=== PATIENT | male | born 1970 | race Caucasian/White ===

== ENCOUNTER 2018-03-15 17:34 | Emergency (ER) | payer OTHER ==
[2018-03-15] MEDS ORDERED: KETOROLAC 30 MG/ML INJ ONE (18:34)
[2018-03-15] MEDS ORDERED: NA CHLORIDE 0.9% 1,000 ML ONE (18:34)
[2018-03-15] MEDS ORDERED: ACETAMINOPHEN 500 MG TAB ONE (18:34)
[2018-03-15 18:57] LABS: Absolute Lymphocytes (CBC) 2.4 K/uL (0.7-4.9); Absolute Monocytes 1.1 K/uL (0.1-1.3); Absolute Neutrophil 7.9 K/uL (1.8-8.0); Basophils % 0.6 % (0-1.3); Eosinophils % 2.2 % (0-4.4); Hematocrit 51.8 % (39.6-49.0); Lymphocytes % 20.2 % (15.3-44.8); MCH 29.3 pg (27.0-35.0); MCV 86.8 fL (80-100); MPV 9.7 fL (7.6-11.3); Monocytes % 9.6 % (3.3-12.3); RBC Red Blood Cell Count 5.97 M/uL (4.33-5.43)
[2018-03-15 19:05] LABS: Albumin 3.9 g/dL (3.4-5.0); Bilirubin Direct 0.2 mg/dL (0-0.2); Bilirubin Total 0.7 mg/dL (0.2-1.0); Protein, Total 7.4 g/dL (6.4-8.2)
[2018-03-15 19:31] LABS: Urine Blood NEGATIVE (NEG); Urine Glucose 2+ (NEG); Urine Protein NEGATIVE (NEG)
[2018-03-15 20:03] LABS: Urine Bacteria <20 /HPF (NONE SEEN); Urine Culture Reflex Order NOT NEEDED; Urine RBC <5 /HPF (NONE SEEN)
--- NOTE | 2018-03-15 20:46 | ER ---
Nurse's Notes [facility] Name: Al Richardson Age: 47 yrs Sex: Male : 1970 Arrival Date: 03/15/2018 Time: 17:38 Bed 20 Private MD: Chintan Storey Diagnosis: Hyperglycemia;Acute Pharyngitis Presentation: 03/15 17:55 Presenting complaint: Patient states: I havent been monitoring my blood sugars and just sg eating and drinking whatever i want to. Transition of care: patient was not received from another setting of care. Onset of symptoms was March 15, 2018. Risk Assessment: Do you want to hurt yourself or someone else? Patient reports no desire to harm self or others. Initial Sepsis Screen: Does the patient meet any 2 criteria? No. Patient's initial sepsis screen is negative. Does the patient have a suspected source of infection? No. Patient's initial sepsis screen is negative. Care prior to arrival: None. 17:55 Method Of Arrival: Ambulatory sg 17:55 Acuity: NANCY 3 sg Historical: - Allergies: 17:56 Pork/Porcine Containing Products; sg - PMHx: 17:56 Cellulitis; Diabetes - NIDDM; lymphedema; PERIPHERAL NEUROPATHY; sg - PSHx: 17:56 Tonsillectomy; sg - Immunization history:: Adult Immunizations not up to date. - Social history:: Smoking status: Patient/guardian denies using tobacco. - Ebola Screening: : Patient negative for fever greater than or equal to 101.5 degrees Fahrenheit, and additional compatible Ebola Virus Disease symptoms Patient denies exposure to infectious person Patient denies travel to an Ebola-affected area in the 21 days before illness onset No symptoms or risks identified at this time. - Family history:: not pertinent. - Hospitalizations: : No recent hospitalization is reported. Screenin:44 Abuse screen: Denies threats or abuse. Denies injuries from another. Nutritional hb screening: No deficits noted. Tuberculosis screening: No symptoms or risk factors identified. Fall Risk None identified. Assessment: 18:30 General: Appears in no apparent distress. Behavior is calm, cooperative. Pain: Pain hb currently is 4 out of 10 on a pain scale. Neuro: Level of Consciousness is awake, alert, obeys commands, Oriented to person, place, time, situation. Cardiovascular: Capillary refill < 3 seconds Patient's skin is warm and dry. Respiratory: Airway is patent Trachea midline Respiratory effort is even, unlabored, Respiratory pattern is regular, symmetrical, Breath sounds are clear bilaterally. GI: No signs and/or symptoms were reported involving the gastrointestinal system. : No signs and/or symptoms were reported regarding the genitourinary system. EENT: Reports pain since throat, head. Derm: Skin is intact, is healthy with good turgor, Skin is pink, warm \T\ dry. Musculoskeletal: No signs and/or symptoms reported regarding the musculoskeletal system. 19:00 Reassessment: RECD REPORT FROM [place] EST[place]AN. 47YO WM P/W HYPERGLYCEMIA AND MED bp NON-COMPLIANCE. VS STABLE, URINE PENDING. 20:55 Reassessment: PT D/C HOME AMBULATORY, DX WITH HYPERGLYCEMIA. bp Vital Signs: 18:30 BP 150 / 79; Pulse 90; Resp 18; Temp 98.3; Pulse Ox 98% on R/A; Pain 4/10; hb 19:00 BP 141 / 78; Pulse 81; Resp 14; Pulse Ox 97% ; bp 20:21 BP 141 / 82; Pulse 73; Resp 16; Pulse Ox 97% ; bp ED Course: 17:38 Patient arrived in ED. sb2 17:38 Chintan Storey DO is Private Physician. sb2 17:43 India Barriga, CARLITO is Primary Nurse. hb 17:55 Arm band placed on. sg 17:56 Triage completed. sg 18:09 Prem Dupont MD is Attending Physician. wa 18:37 Initial lab(s) drawn, by me, sent to lab. Flu and/or RSV swab sent to lab. Inserted dh3 saline lock: 20 gauge in left forearm, using aseptic technique. Blood collected. 18:46 Patient has correct armband on for positive identification. Call light in reach. Pt hb sitting in chair. 20:32 Primary Nurse role handed off by India Barriga, CARLITO bp 20:32 Edward Martin, CARLITO is Primary Nurse. bp 20:56 No provider procedures requiring assistance completed. IV discontinued, intact, bp bleeding controlled, No redness/swelling at site. Pressure dressing applied. Administered Medications: 18:40 Drug: NS 0.9% 1000 ml Route: IV; Rate: 1 bolus; Site: left forearm; hb 20:30 Follow up: IV Status: Completed infusion; IV Intake: 1000ml bp 18:40 Drug: TORadol 30 mg Route: IVP; Site: right forearm; hb 19:14 Follow up: Response: Pain is decreased bp 18:40 Drug: Tylenol 1000 mg Route: PO; hb 19:15 Follow up: Response: No adverse reaction; Pain is decreased bp Intake: 20:30 IV: 1000ml; Total: 1000ml. bp Outcome: 20:45 Discharge ordered by . maria l 20:55 Discharged to home ambulatory. bp 20:55 Condition: stable 20:55 Discharge instructions given to patient, Instructed on discharge instructions, follow up and referral plans. Demonstrated understanding of instructions, follow-up care. 20:56 Patient left the ED. bp Signatures: Gautam Roger RN RN India Jefferson RN RN Rima Griggs 3 Prem Dupont MD MD wa Peltier, Brian RN RN bp Maral Srivastava sb2
--- NOTE | 2018-03-15 20:46 | EDPHYS ---
Physician Documentation [facility] Name: Al Richardson Age: 47 yrs Sex: Male : 1970 Arrival Date: 03/15/2018 Time: 17:38 Bed 20 Private MD: Chintan Storey ED Physician Prem Dupont HPI: 03/15 19:51 This 47 yrs old Male presents to ER via Ambulatory with complaints of High wa Blood Sugar. 19:51 The patient presents with sore throat, nasal congestion. states told to come in as BG wa 460. has not taken his diabetes meds in several days. The patient describes throat pain as constant. Onset: The symptoms/episode began/occurred 2 day(s) ago. Severity of symptoms: At their worst the symptoms were moderate, in the emergency department the symptoms are unchanged. Modifying factors: The symptoms are alleviated by nothing, the symptoms are aggravated by swallowing. Associated signs and symptoms: Pertinent positives: rhinorrhea, Pertinent negatives shortness of breath. The patient has not experienced similar symptoms in the past. The patient has been recently seen by a physician: the patient's primary care provider, told elevated A1c and hyperglycemia. Historical: - Allergies: 17:56 Pork/Porcine Containing Products; sg - PMHx: 17:56 Cellulitis; Diabetes - NIDDM; lymphedema; PERIPHERAL NEUROPATHY; sg - PSHx: 17:56 Tonsillectomy; sg - Immunization history:: Adult Immunizations not up to date. - Social history:: Smoking status: Patient/guardian denies using tobacco. - Ebola Screening: : Patient negative for fever greater than or equal to 101.5 degrees Fahrenheit, and additional compatible Ebola Virus Disease symptoms Patient denies exposure to infectious person Patient denies travel to an Ebola-affected area in the 21 days before illness onset No symptoms or risks identified at this time. - Family history:: not pertinent. - Hospitalizations: : No recent hospitalization is reported. ROS: 19:53 Constitutional: Negative for fever, chills, and weight loss, Eyes: Negative for injury, wa pain, redness, and discharge, Neck: Negative for injury, pain, and swelling, Cardiovascular: Negative for chest pain, palpitations, and edema, Respiratory: Negative for shortness of breath, cough, wheezing, and pleuritic chest pain, Abdomen/GI: Negative for abdominal pain, nausea, vomiting, diarrhea, and constipation, Back: Negative for injury and pain, : Negative for injury, bleeding, discharge, and swelling, MS/Extremity: Negative for injury and deformity, Skin: Negative for injury, rash, and discoloration, Neuro: Negative for headache, weakness, numbness, tingling, and seizure, Psych: Negative for depression, anxiety, suicide ideation, homicidal ideation, and hallucinations. 19:53 ENT: Positive for rhinorrhea, sore throat. 19:53 All other systems are negative. Exam: 19:54 Constitutional: This is a well developed, well nourished patient who is awake, alert, wa and in no acute distress. Head/Face: Normocephalic, atraumatic. Eyes: Pupils equal round and reactive to light, extra-ocular motions intact. Lids and lashes normal. Conjunctiva and sclera are non-icteric and not injected. Cornea within normal limits. Periorbital areas with no swelling, redness, or edema. 19:54 Neck: Trachea midline, no thyromegaly or masses palpated, and no cervical lymphadenopathy. Supple, full range of motion without nuchal rigidity, or vertebral point tenderness. No Meningismus. Chest/axilla: Normal chest wall appearance and motion. Nontender with no deformity. No lesions are appreciated. Cardiovascular: Regular rate and rhythm with a normal S1 and S2. No gallops, murmurs, or rubs. Normal PMI, no JVD. No pulse deficits. Respiratory: Lungs have equal breath sounds bilaterally, clear to auscultation and percussion. No rales, rhonchi or wheezes noted. No increased work of breathing, no retractions or nasal flaring. Abdomen/GI: Soft, non-tender, with normal bowel sounds. No distension or tympany. No guarding or rebound. No evidence of tenderness throughout. Back: No spinal tenderness. No costovertebral tenderness. Full range of motion. Skin: Warm, dry with normal turgor. Normal color with no rashes, no lesions, and no evidence of cellulitis. MS/ Extremity: Pulses equal, no cyanosis. Neurovascular intact. Full, normal range of motion. Neuro: Awake and alert, GCS 15, oriented to person, place, time, and situation. Cranial nerves II-XII grossly intact. Motor strength 5/5 in all extremities. Sensory grossly intact. Cerebellar exam normal. Normal gait. Psych: Awake, alert, with orientation to person, place and time. Behavior, mood, and affect are within normal limits. 19:54 Constitutional: The patient appears in no acute distress, alert, morbidly obese 19:54 ENT: External ear(s): are unremarkable, Posterior pharynx: Tonsils: are normal in appearance, Uvula: normal, erythema, that is mild, exudate, is not appreciated. Vital Signs: 18:30 BP 150 / 79; Pulse 90; Resp 18; Temp 98.3; Pulse Ox 98% on R/A; Pain 4/10; hb 19:00 BP 141 / 78; Pulse 81; Resp 14; Pulse Ox 97% ; bp 20:21 BP 141 / 82; Pulse 73; Resp 16; Pulse Ox 97% ; bp MDM: 18:09 Patient medically screened. wv 19:54 Differential diagnosis: upper respiratory infection, viral syndrome hyperglycemia. wv check labs, hydrate, reassess. Data reviewed: vital signs, nurses notes. 20:07 Test interpretation: by ED physician or midlevel provider: labs notable for glucose of wv 399. . 20:43 Response to treatment: the patient's symptoms have markedly improved after treatment. wv ED course: received fluids for hyperglycemia. pain meds for sore throat. great improvement noted. counseled to f/u with PMD. pt non-compliant with DM meds. assured me he has them and will begin to take them. 03/15 18:25 Order name: Basic Metabolic Panel; Complete Time: 20:06 03/15 18:25 Order name: CBC with Diff; Complete Time: 20:03/15 18:25 Order name: Hepatic Function; Complete Time: 20:03/15 18:25 Order name: Lipase; Complete Time: 20:03/15 18:25 Order name: Urine Microscopic Only; Complete Time: 20:06 03/15 18:25 Order name: Flu; Complete Time: 20:07 03/15 18:25 Order name: IV Saline Lock; Complete Time: 18:42 03/15 18:25 Order name: Labs collected and sent; Complete Time: 18:42 03/15 18:25 Order name: Urine Dipstick-Ancillary (obtain specimen); Complete Time: 19:43 03/15 19:24 Order name: Urine Dipstick--Ancillary (enter results); Complete Time: 20:06 rg2 Administered Medications: 18:40 Drug: NS 0.9% 1000 ml Route: IV; Rate: 1 bolus; Site: left forearm; hb 20:30 Follow up: IV Status: Completed infusion; IV Intake: 1000ml bp 18:40 Drug: TORadol 30 mg Route: IVP; Site: right forearm; hb 19:14 Follow up: Response: Pain is decreased bp 18:40 Drug: Tylenol 1000 mg Route: PO; hb 19:15 Follow up: Response: No adverse reaction; Pain is decreased bp Disposition: 03/15/18 20:45 Discharged to Home. Impression: Hyperglycemia, Acute Pharyngitis. - Condition is Stable. - Discharge Instructions: Pharyngitis, [id number], Hyperglycemia, [id number]. - Medication Reconciliation Form, Thank You Letter, Antibiotic Education, Prescription Opioid Use form. - Follow up: Private Physician; When: 1 - 2 days. - Problem is new. - Symptoms have improved. - Notes: take your diabetes medicine to control your bloos sugar. you will develop complications from high sugar if you do not take your medicines Signatures: Dispatcher [employer] EDMS Gautam Roger RN RN India Barriga RN RN Prem Dupont MD MD wv Edward Martin RN RN bp Corrections: (The following items were deleted from the chart) 20:56 20:45 03/15/2018 20:45 Discharged to Home. Impression: Hyperglycemia; Acute bp Pharyngitis. Condition is Stable. Forms are Medication Reconciliation Form, Thank You Letter, Antibiotic Education, Prescription Opioid Use. Follow up: Private Physician; When: 1 - 2 days. Problem is new. Symptoms have improved. wa
[2018-03-15 21:00] VITALS: TEMP 98.3
[2018-03-15 21:01] VITALS: O2SAT 97
[2018-03-15 21:02] VITALS: BP 141/82
== END 2018-03-15 20:56 | disposition home or self-care (01) ==
LOC: ER 17:34
DX: R73.9 Hyperglycemia, unspecified (principal); J02.9 Acute pharyngitis, unspecified; Z91.018 Allergy to other foods
CPT/HCPCS: 36415; 80048; 80076; 81003; 81015; 83690; 85025; 87804; 96361; 96374; 99283; J7030

== ENCOUNTER 2018-04-25 16:55 | Emergency (ER) | payer OTHER ==
[2018-04-25] MEDS ORDERED: CIPROFLOXACIN HCL 500 MG TAB ONE (18:08)
[2018-04-25] MEDS ORDERED: KETOROLAC 30 MG/ML INJ ONE (18:08)
--- NOTE | 2018-04-25 19:43 | EDPHYS ---
Physician Documentation [facility] Name: Al Richardson Age: 47 yrs Sex: Male : 1970 Arrival Date: 04/25/2018 Time: 16:59 Bed 7 Private MD: Chintan Storey ED Physician Lei Lockhart HPI: 04/25 18:53 This 47 yrs old Male presents to ER via Ambulatory with complaints of Foot snw Pain. 18:53 The patient presents with pain, that is acute. Context: The problem was sustained at an snw unknown site, resulted from an unknown cause, the patient can fully bear weight, the patient is able to ambulate. Onset: The symptoms/episode began/occurred distantly. Pt was unaware of any fb, saw turbine room attendant this past week and was told he had fb. Associated signs and symptoms: Pertinent positives: tenderness. Severity of symptoms: At their worst the symptoms were moderate. It is unknown whether or not the patient has had similar symptoms in the past. as noted. Historical: - Allergies: 17:04 Pork/Porcine Containing Products; sv - PMHx: 17:04 Cellulitis; Diabetes - NIDDM; lymphedema; PERIPHERAL NEUROPATHY; sv - PSHx: 17:04 Tonsillectomy; sv - Immunization history:: Flu vaccine is not up to date. - Social history:: Smoking status: Patient/guardian denies using tobacco. - Ebola Screening: : No symptoms or risks identified at this time. ROS: 18:50 Constitutional: Negative for fever, chills, and weight loss, Eyes: Negative for injury, snw pain, redness, and discharge, ENT: Negative for injury, pain, and discharge, Neck: Negative for injury, pain, and swelling, Cardiovascular: Negative for chest pain, palpitations, and edema, Respiratory: Negative for shortness of breath, cough, wheezing, and pleuritic chest pain, Abdomen/GI: Negative for abdominal pain, nausea, vomiting, diarrhea, and constipation, Back: Negative for injury and pain, : Negative for injury, bleeding, discharge, and swelling, MS/Extremity: Negative for injury and deformity, + increased pain to right plantar foot, saw turbine room attendant this past week who told him he had a fb in the foot that would encapsulate itself and come to the surface Neuro: Negative for headache, weakness, numbness, tingling, and seizure. Exam: 18:49 Constitutional: This is a well developed, obese patient who is awake, alert, and in no snw acute distress. Head/Face: Normocephalic, atraumatic. Eyes: Pupils equal round and reactive to light, extra-ocular motions intact. Lids and lashes normal. Conjunctiva and sclera are non-icteric and not injected. Cornea within normal limits. Periorbital areas with no swelling, redness, or edema. ENT: Nares patent. No nasal discharge, no septal abnormalities noted. Tympanic membranes are normal and external auditory canals are clear. Oropharynx with no redness, swelling, or masses, exudates, or evidence of obstruction, uvula midline. Mucous membranes moist. Neck: Trachea midline, no thyromegaly or masses palpated, and no cervical lymphadenopathy. Supple, full range of motion without nuchal rigidity, or vertebral point tenderness. No Meningismus. Chest/axilla: Normal chest wall appearance and motion. Nontender with no deformity. No lesions are appreciated. Cardiovascular: Regular rate and rhythm with a normal S1 and S2. No gallops, murmurs, or rubs. Normal PMI, no JVD. No pulse deficits. Respiratory: Lungs have equal breath sounds bilaterally, clear to auscultation and percussion. No rales, rhonchi or wheezes noted. No increased work of breathing, no retractions or nasal flaring. Abdomen/GI: Soft, non-tender, with normal bowel sounds. No distension or tympany. No guarding or rebound. No evidence of tenderness throughout. Back: No spinal tenderness. No costovertebral tenderness. Full range of motion. MS/ Extremity: Pulses equal, no cyanosis. Neurovascular intact. Full, normal range of motion. Neuro: Awake and alert, GCS 15, oriented to person, place, time, and situation. Cranial nerves II-XII grossly intact. Motor strength 5/5 in all extremities. Sensory grossly intact. Cerebellar exam normal. Normal gait. Psych: Awake, alert, with orientation to person, place and time. Behavior, mood, and affect are within normal limits. 18:49 Skin: Appearance: normal except for affected area, lesion(s), noted, and can be described as scabbed lesion without dc or surrounding erythema, located on the ball of right foot. Vital Signs: 17:04 BP 140 / 70; Pulse 80; Resp 20; Temp 98.9(O); Pulse Ox 96% ; Weight 226.8 kg; Height 6 sv ft. 0 in. (182.88 cm); Pain 6/10; 19:39 BP 112 / 65; Pulse 73; Resp 18; Pulse Ox 97% on R/A; tl2 17:04 Body Mass Index 67.81 (226.80 kg, 182.88 cm) sv MDM: 17:17 Patient medically screened. snw 20:04 Data reviewed: vital signs, nurses notes. Data interpreted: Pulse oximetry: on room air snw is 97 %. Interpretation: normal. Counseling: I had a detailed discussion with the patient and/or guardian regarding: the historical points, exam findings, and any diagnostic results supporting the discharge/admit diagnosis. Response to treatment: unchanged as pt refused pain medications or antibiotics. Refusal of service: The patient/guardian displays adequate decision making capability and despite a detailed discussion of alternatives, benefits, risks, and consequences refuses: Medications. Special discussion: Based on the history and exam findings, there is no indication for further emergent testing or inpatient evaluation. I discussed with the patient/guardian the need to see the foot miter operator for further evaluation of the symptoms. I discussed with the patient/guardian the need to see the primary care provider for further evaluation of the symptoms. 04/25 17:52 Order name: Foot Right 3 View XRAY; Complete Time: 20:47 snw 04/25 19:48 Order name: Topher wrap-joint; Complete Time: 19:58 snw 04/25 19:48 Order name: Post-op shoe; Complete Time: 19:58 snw Administered Medications: 18:19 Not Given (Patient Refused): TORadol 60 mg IM once aa5 18:19 Not Given (Patient Refused): Cipro 500 mg PO once aa5 Disposition: 04/26 15:22 Co-signature as Attending Physician, Lei Lockhart MD. Disposition: 04/25/18 19:42 Discharged to Home. Impression: Pain in right foot, Superficial foreign body of foot. - Condition is Stable. - Discharge Instructions: Musculoskeletal Pain, Heat Therapy, Foot Pain. - Prescriptions for Tylenol- Codeine #3 300-30 mg Oral Tablet - take 2 tablets by ORAL route every 6 hours As needed; 10 tablet. Cipro 500 mg Oral Tablet - take 1 tablet by ORAL route every 12 hours for 7 days; 14 tablet. - Medication Reconciliation Form, Thank You Letter, Antibiotic Education, Prescription Opioid Use form. - Follow up: Chintan Storey DO; When: 1 - 2 days; Reason: Recheck today's complaints, Continuance of care, Re-evaluation by your physician. Follow up: Emergency Department; When: As needed; Reason: Worsening of condition. Signatures: Dispatcher [employer] EDMT Nichol Botello, RN RN Kendy Abbott, INSURANCE UNDERWRITER-C INSURANCE UNDERWRITER-Csnw Mirian Kendall RN RN tl2 Lei Lockhart MD MD gs Calderon, Audri RN aa5 Corrections: (The following items were deleted from the chart) 04/25 20:51 19:42 04/25/2018 19:42 Discharged to Home. Impression: Pain in right foot; Superficial tl2 foreign body of foot. Condition is Stable. Forms are Medication Reconciliation Form, Thank You Letter, Antibiotic Education, Prescription Opioid Use. Follow up: Chintan Storey; When: 1 - 2 days; Reason: Recheck today's complaints, Continuance of care, Re-evaluation by your physician. Follow up: Emergency Department; When: As needed; Reason: Worsening of condition. snw
--- NOTE | 2018-04-25 19:43 | ER ---
Nurse's Notes [facility] Department Name: Al Richardson Age: 47 yrs Sex: Male : 1970 Arrival Date: 04/25/2018 Time: 16:59 Bed 7 Private MD: Chintan Storey Diagnosis: Pain in right foot;Superficial foreign body of foot Presentation: 04/25 17:03 Presenting complaint: Patient states: right foot pain and swelling started last night. sv Pt reports that he had a foreign body in his foot about 2 weeks ago. Transition of care: patient was not received from another setting of care. Onset of symptoms was April 24, 2018. Care prior to arrival: None. 17:03 Method Of Arrival: Ambulatory sv 17:03 Acuity: NANCY 3 sv 17:18 Risk Assessment: Do you want to hurt yourself or someone else? Patient reports no la1 desire to harm self or others. Initial Sepsis Screen: Does the patient meet any 2 criteria? No. Patient's initial sepsis screen is negative. Does the patient have a suspected source of infection? No. Patient's initial sepsis screen is negative. Historical: - Allergies: 17:04 Pork/Porcine Containing Products; sv - PMHx: 17:04 Cellulitis; Diabetes - NIDDM; lymphedema; PERIPHERAL NEUROPATHY; sv - PSHx: 17:04 Tonsillectomy; sv - Immunization history:: Flu vaccine is not up to date. - Social history:: Smoking status: Patient/guardian denies using tobacco. - Ebola Screening: : No symptoms or risks identified at this time. Screenin:18 Abuse screen: Denies threats or abuse. Nutritional screening: No deficits noted. la1 Tuberculosis screening: No symptoms or risk factors identified. Fall Risk None identified. Assessment: 17:19 General: Appears in no apparent distress. Behavior is calm, cooperative. Pain: la1 Complains of pain in right foot. Neuro: Level of Consciousness is awake, alert, obeys commands, Oriented to person, place, time, situation, Moves all extremities. Gait is steady, Speech is normal, Facial symmetry appears normal. Cardiovascular: Capillary refill < 3 seconds Patient's skin is warm and dry. Respiratory: Airway is patent Respiratory effort is even, unlabored, Respiratory pattern is regular, symmetrical. GI: No signs and/or symptoms were reported involving the gastrointestinal system. : No signs and/or symptoms were reported regarding the genitourinary system. Derm: redness and swelling noted to right foot. 18:10 Reassessment: Patient is alert, oriented x 3, equal unlabored respirations, skin aa5 warm/dry/pink. Pt refusing Toradol IM, refusing Cipro PO. Pt states "I don't like needles so I don't want the pain medicine". Pt states "I don't take antibiotic pills because it gives me diarrhea and constipation so I need a shot instead". CAN RECONDITIONER was notified. . 18:50 Reassessment: Patient appears in no apparent distress at this time. No changes from la1 previously documented assessment. Patient and/or family updated on plan of care and expected duration. Pain level reassessed. 19:39 General: Appears in no apparent distress. uncomfortable, Behavior is calm, cooperative, tl2 appropriate for age. Pain: Complains of pain in ball of right foot. Neuro: Level of Consciousness is awake, alert, obeys commands, Oriented to person, place, time, situation. Cardiovascular: Denies chest pain. Respiratory: Airway is patent Respiratory effort is even, unlabored, Respiratory pattern is regular, symmetrical. GI: No signs and/or symptoms were reported involving the gastrointestinal system. : No signs and/or symptoms were reported regarding the genitourinary system. Derm: Skin is pink, warm \\T\\ dry. Wound noted ball of right foot Wound is small wound, non infected. Redness surrounding wound. 20:49 Reassessment: Patient appears in no apparent distress at this time. Patient and/or tl2 family updated on plan of care and expected duration. Pain level reassessed. Patient is alert, oriented x 3, equal unlabored respirations, skin warm/dry/pink. Pt verbalized understanding of discharge instructions, need for follow up and prescription usage. Vital Signs: 17:04 BP 140 / 70; Pulse 80; Resp 20; Temp 98.9(O); Pulse Ox 96% ; Weight 226.8 kg; Height 6 sv ft. 0 in. (182.88 cm); Pain 6/10; 19:39 BP 112 / 65; Pulse 73; Resp 18; Pulse Ox 97% on R/A; tl2 17:04 Body Mass Index 67.81 (226.80 kg, 182.88 cm) sv ED Course: 16:59 Patient arrived in ED. mr 16:59 Chintan Storey DO is Private Physician. mr 17:01 Kendy Abbott FNP-C is [facility]. snw 17:02 Lei Lockhart MD is Attending Physician. snw 17:04 Triage completed. sv 17:06 Arm band placed on. sv 17:18 Maikol Alston RN is Primary Nurse. la1 17:19 Call light in reach. Side rails up X 1. la1 18:49 Foot Right 3 View XRAY In Process Unspecified. EDMS 19:41 Chintan Storey DO is Referral Physician. snw 20:49 No provider procedures requiring assistance completed. Patient did not have IV access tl2 during this emergency room visit. Administered Medications: 18:19 Not Given (Patient Refused): TORadol 60 mg IM once aa5 18:19 Not Given (Patient Refused): Cipro 500 mg PO once aa5 Outcome: 19:42 Discharge ordered by MD. snw 20:49 Discharged to home via wheelchair. tl2 20:49 Condition: stable 20:49 Discharge instructions given to patient, Instructed on discharge instructions, follow up and referral plans. medication usage, Demonstrated understanding of instructions, follow-up care, medications, Prescriptions given X 2. 20:51 Patient left the ED. tl2 Signatures: Dispatcher [employer] EDNichol Killian RN RN Kendy Abbott FNP-C FNP-[facility] Esther DanielMyah RN RN aa5 Maikol Alston RN RN la1 Mirian Kendall RN RN tl2 Corrections: (The following items were deleted from the chart) 17:06 17:03 Presenting complaint: Patient states: right foot pain and swelling started last sv night. sv 17:07 17:03 Acuity: NANCY 4 sv sv 17:07 17:04 Pulse 80bpm; Resp 20bpm; Pulse Ox 96%; Temp 98.9F Oral; 226.8 kg; Height 6 ft. 0 sv in.; BMI: 67.8; Pain 6/10; sv
--- NOTE | 2018-04-25 20:46 | RAD REPORT ---
EXAM DESCRIPTION: RAD - Foot Right 3 View - 04/25/2018 6:49 pm CLINICAL HISTORY: Right foot pain and swelling COMPARISON: March 15 FINDINGS: No fracture, dislocation or periosteal reaction. No acute or destructive bone process. The small curvilinear metallic foreign body in the superficial soft tissues plantar first proximal ph alanx region unchanged from comparison. No air, calcification or other foreign body in the soft tissu es. IMPRESSION: Foreign body plantar soft tissues first proximal phalanx level unchanged from March 15 imaging. No air or calcification near the foreign body. No acute bone finding.
[2018-04-25 21:07] VITALS: TEMP 98.9
[2018-04-25 21:08] VITALS: BP 112/65; O2SAT 97
== END 2018-04-25 20:51 | disposition home or self-care (01) ==
LOC: ER 16:55
DX: S90.851A Superficial foreign body, right foot, initial encounter (principal); X58.XXXA Exposure to other specified factors, initial encounter; Y93.9 Activity, unspecified; Z91.018 Allergy to other foods
CPT/HCPCS: 99283

== ENCOUNTER 2018-05-10 07:23 | Day surgery (SDC) | payer OTHER ==
[2018-05-07 11:19] LABS: Absolute Lymphocytes (CBC) 2.5 K/uL (0.7-4.9); Absolute Monocytes 0.7 K/uL (0.1-1.3); Absolute Neutrophil 5.7 K/uL (1.8-8.0); Basophils % 0.9 % (0-1.3); Eosinophils % 4.6 % (0-4.4); Hematocrit 51.4 % (39.6-49.0); Lymphocytes % 26.4 % (15.3-44.8); MCH 29.3 pg (27.0-35.0); MCV 86.8 fL (80-100); MPV 10.2 fL (7.6-11.3); Monocytes % 7.2 % (3.3-12.3); RBC Red Blood Cell Count 5.92 M/uL (4.33-5.43)
[2018-05-07 11:41] LABS: Potassium 4.3 mmol/L (3.5-5.1)
--- NOTE | 2018-05-07 18:47 | EKG ---
Test Date: 2018-05-07 Test Time: 10:44:15 Water Resource Consultant: [facility] MEASUREMENT RESULTS: Intervals: Rate: 55 IL: 244 QRSD: 92 QT: 418 QTc: 399 [place]: P: 29 IL: 244 QRS: 5 T: 0 INTERPRETIVE STATEMENTS: Sinus bradycardia with 1st degree AV block Possible Anterior infarct, age undetermined Abnormal ECG Compared to ECG 12/06/2016 22:23:43 First degree AV block now present Sinus rhythm no longer present Atrial premature complex(es) no longer present Myocardial infarct finding still present Electronically Signed On 05-07-18 18:44:53 CLEAN UP SUPERVISOR by Gurjit Esqueda
[~2018-05-10 07:23] MED LIST: CEFAZOLIN/SWI 2gm 2 GM/20 ML SYR IV SCH
[2018-05-10] MEDS ORDERED: CEFAZOLIN/SWI 1gm 1 GM/10 ML SYR ONE (07:57)
[2018-05-10] MEDS ORDERED: NA CHLORIDE 0.9% 1,000 ML ONE (07:57)
[2018-05-10] MEDS ORDERED: BUPIVACAINE 0.25% PF 10 ML VIAL ONE (08:00)
[2018-05-10] MEDS ORDERED: FENTANYL CITR 100 MCG/2 ML ONE (08:32)
[2018-05-10] MEDS ORDERED: PROPOFOL 200 MG/20 ML VIAL IV ONE ×2 (08:44→08:52)
[2018-05-10] MEDS ORDERED: LIDOCAINE 1% MPF 5 ML VIAL ONE (08:46)
--- NOTE | 2018-05-10 09:10 | P.OP ---
Preoperative diagnosis: Right Great Toe infection, Foreign Body Postoperative diagnosis: Right Great Toe infection, Foreign Body Primary procedure: Removal of Right Great Toe Foreign Body Secondary procedure: Debridement of infected tissue Anesthesia: MAC + Local Estimated blood loss: <5cc Specimen: Cultures, Foreign Body Findings: Foreign Body of Right Foot, infected tissue surrounding Complications: None Transferred to: Recovery Room Condition: Good
[2018-05-10] MEDS: MEPERIDINE HCL 25 MG/0.5 ML ONE ×2 (09:26→09:31)
[2018-05-10 10:18] VITALS: BP 149/75; TEMP 98; O2SAT 98
[2018-05-10] MEDS ORDERED: HYDROCODONE/APAP 5/325 MG TAB ONE (10:19)
--- NOTE | 2018-05-10 20:07 | OP ---
Date of Procedure: 05/10/2018 Surgeon: Jewel Wright MD, Preoperative Diagnosis: Right great toe infection/foreign body. Postoperative Diagnosis: Right great toe infection/foreign body. Procedure Performed: 1.Removal of right great toe foreign body. 2.Debridement of infected tissue. Anesthesia: MAC plus local. Estimated Blood Loss: Less than 5 cc. Specimen: Cultures and foreign body. Findings: A foreign body in the right foot at the proximal interphalangeal joint region just proxima l to this infected tissue surrounding. Complications: None. Disposition: Transferred to recovery room in good condition. Procedure In Detail: An informed consent was obtained, the patient was brought to the operating room , prepped and draped in the usual sterile fashion. After adequate anesthesia was achieved, I anesthe tized the area additionally with 0.25% Marcaine with epinephrine in the area of the right great toe. This is just proximal to the metatarsophalangeal joint of the right toe on the plantar aspect. I ma de a small elliptical incision and dissected down through the tissues until I encountered a small wha t appeared to be a metallic foreign body with surrounding infected tissue. I debrided this completel y and removed the foreign body. Irrigated the area until completely dry. Hemostasis was achieved wi th electrocautery. All necrotic tissue was debrided. I then packed the area after hemostasis was ac hieved with a quarter-inch plain packing and sterile dressing was placed on the top. The patient to lerated the procedure well without evidence of complications, transferred to the PACU in good conditi on. All counts were correct at the end of the case. SHARLA/ELSI Voice ID: [id number] Report ID: [id number]
== END 2018-05-10 10:58 | disposition home or self-care (01) ==
LOC: OR 07:23
PROVIDERS: ATTEND Surgery
PROC: 0JDQ0ZZ Extraction of Right Foot Subcutaneous Tissue and Fascia, Open Approach (ICD-10-PCS; 2018-05-10)
PROC: 0JCQ0ZZ Extirpation of Matter from Right Foot Subcutaneous Tissue and Fascia, Open Approach (ICD-10-PCS; principal; 2018-05-10 08:30)
DX: S90.851A Superficial foreign body, right foot, initial encounter (principal); L08.9 Local infection of the skin and subcutaneous tissue, unspecified; E11.9 Type 2 diabetes mellitus without complications; I10 Essential (primary) hypertension; G47.33 Obstructive sleep apnea (adult) (pediatric); Z91.013 Allergy to seafood
CPT/HCPCS: 36415; 80048; 82962; 85025; 87070; 87077; 87176; 87186; 87205; 88304; 93005; J0690; J2175; J2704; J3010; J7030

== ENCOUNTER 2019-01-13 03:42 | Emergency (ER) | payer OTHER ==
--- OUTSIDE RECORDS SUMMARY | 2019-01-13 03:45 | XMS REPORT ---
:1970 Author Organization eClinical[employer] Care Team Providers Name Role Phone Chintan Storey Provider Role Unavailable Allergies No Known Allergies Problems Problem Type Condition Code Onset Dates Condition Status Problem Allergic rhinitis, seasonal J30.2 Active Problem Controlled type 2 diabetes with E11.40 Active neuropathy Problem Neuropathy, peripheral G62.9 Active Problem Knee pain M25.569 Active Problem Breast mass, right N63.10 Active Problem Fatigue R53.83 Active Problem Cellulitis of toe of right foot L03.031 Active Problem Benign essential HTN I10 Active Problem Chronic pain syndrome G89.4 Active Problem Obstructive sleep apnea G47.33 Active Problem Lymphedema I89.0 Active Problem Venous insufficiency I87.2 Active Problem BPH (benign prostatic hypertrophy) N40.1 Active with urinary obstruction Problem Non compliance with medical Z91.19 Active treatment Problem BMI 60.0-69.9, adult Z68.44 Active Problem Pain in shoulder M25.519 Active Problem Spina bifida occulta Q76.0 Active Problem Varicose veins of bilateral lower I83.893 Active extremities with other complications Problem Low back pain M54.5 Active Problem Decreased testosterone level E29.1 Active Problem Other abnormalities of gait and R26.89 Active mobility Problem Hyperglyceridemia E78.1 Active Medications Medication Code System Code Instructions Start Date End Date Status Dosage Augmentin [facility] 97079736221 875-125 MG Orally Jul 20, Active 1 tablet every 12 hrs 2018 Results No Known Results Summary Purpose [employer] Submission
--- OUTSIDE RECORDS SUMMARY | 2019-01-13 03:45 | XMS REPORT ---
:1970 Author Organization e[employer] Care Team Providers Name Role Phone StoreyChintan mohamud Provider Role Unavailable Allergies No Known Allergies [...] Active mobility Problem Hyperglyceridemia E78.1 Active Medications No Known Medications Results No Known Results Summary Purpose eClinicalWorks Submission
--- OUTSIDE RECORDS SUMMARY | 2019-01-13 03:45 | XMS REPORT ---
:1970 Author Organization e[employer] Care Team Providers Name Role Phone Jewel Wright Provider Role Unavailable Allergies No Known Allergies [...] Active Problem Decreased testosterone level E29.1 Active Assessment Visit for wound check Z51.89 Active Problem Other abnormalities of gait and R26.89 Active mobility Problem Hyperglyceridemia E78.1 Active Medications Medication Code Code Instructions Start End Status Dosage System Date Date Metformin HCl [facility] 96120811225 1000 MG Orally Active 1 tablet with Twice a day meals Amaryl ND 66533851814 2 MG Orally BID Active take 1 tablet by mouth twice a day before a meal Lipitor ND 88255165553 10 MG Orally Active 1 tablet Once a day Viagra [facility] 46615417181 50 MG Orally Active 1 tablet as Once a day needed Tradjenta [facility] 63496885643 5 MG Orally Neyda Active 1 tablet Once a day 2017 Lidocaine HCl [facility] 23998987417 2 % Externally May 18, Active 1 application Three times a 2017 to affected day area as needed Walker [facility] 64766668772 - daily with May 18, Active as directed movement 2017 CPAP Machine NDC 0 Active not defined Tylenol # 3 NDC 0 Active not defined Lasix [facility] 23648521635 40 MG Orally Active 1 tablet Once a day Lisinopril [facility] 42398230253 40 MG Orally Active 1 tablet Once a day Clotrimazole [facility] 96645926175 1 % Externally Active 1 application Twice a day to affected area Results No Known Results Summary Purpose eClinicalWorks Submission
--- OUTSIDE RECORDS SUMMARY | 2019-01-13 03:45 | XMS REPORT ---
:1970 Author Organization e[employer]Works Care Team Providers Name Role Phone Jewel Wright Provider Role Unavailable Allergies, Adverse Reactions, Alerts Substance Reaction Event Type Crab (Diagnostic) Info Not Available Drug Allergy Problems Problem Type Condition Code Onset Dates [...] Start End Status Dosage System Date Date Lasix ND 21264950766 40 MG Orally Active 1 tablet Once a day Lisinopril ND 13829299823 40 MG Orally Active 1 tablet Once a day Lidocaine HCl [facility] 24161599236 2 % Externally May 18, Active 1 application Three times a 2018 to affected day area as needed Amaryl ND 14419759875 2 MG Orally BID Active take 1 tablet by mouth twice a day before a meal Tylenol # 3 NDC 0 Active not defined Lipitor ND 35296994883 10 MG Orally Active 1 tablet Once a day Tradjenta ND 31881239537 5 MG Orally September Active 1 tablet Once a day 2017 Walker [facility] 83495962606 - daily with May 18, Active as directed movement 2017 Clotrimazole [facility] 46255964526 1 % Externally Active 1 application Twice a day to affected area Metformin HCl [facility] 53679894369 1000 MG Orally Active 1 tablet with Twice a day meals CPAP Machine ND 0 Active not defined Viagra [facility] 44199786053 50 MG Orally Active 1 tablet as Once a day needed Results No Known Results Summary Purpose eClinicalWorks Submission
--- OUTSIDE RECORDS SUMMARY | 2019-01-13 03:45 | XMS REPORT ---
:1970 Author Organization eClinicalWorks Care Team Providers Name Role Phone [place] Chintan Provider Role Unavailable Allergies No Known Allergies [...] Medications Medication Code Code Instructions Start End Date Status Dosage System Date Metformin HCl [facility] 11977757995 1000 MG Orally Active 1 tablet Twice a day with meals Amaryl [facility] 10304956650 2 MG Orally BID Active take 1 tablet by mouth twice a day before a meal Results No Known Results Summary Purpose eClinicalWorks Submission
--- OUTSIDE RECORDS SUMMARY | 2019-01-13 03:45 | XMS REPORT ---
:1970 Author Organization eClinicalWorks Care Team Providers Name Role Phone NiallrubiJewel Provider Role Unavailable Allergies No Known Allergies [...]
--- OUTSIDE RECORDS SUMMARY | 2019-01-13 03:46 | XMS REPORT ---
:1970 [facility] Team Providers Name Role Phone Chintan Storey Provider Role Unavailable Allergies, Adverse Reactions, Alerts Substance Reaction Event Type Crab (Diagnostic) Info Not Available Drug Allergy Problems Problem Type Condition Code Onset Dates Condition Status Assessment Uncontrolled type 2 diabetes E11.65 Active mellitus with hyperglycemia Assessment Skin lesion of right leg L98.9 Active Assessment BMI 60.0-69.9, adult Z68.44 Active Assessment Tinea corporis B35.4 Active Problem Cellulitis of toe of right foot L03.031 Active Problem Obstructive sleep apnea G47.33 Active Problem BMI 60.0-69.9, adult Z68.44 Active Problem Breast mass, right N63.10 Active Problem Pain in shoulder M25.519 Active Problem Non compliance with medical Z91.19 Active treatment Problem BPH (benign prostatic hypertrophy) N40.1 Active with urinary obstruction Problem Skin lesion of right leg L98.9 Active Problem Uncontrolled type 2 diabetes E11.65 Active mellitus with hyperglycemia Problem Lymphedema I89.0 Active Problem Venous insufficiency I87.2 Active Problem Tinea corporis B35.4 Active Problem Chronic pain syndrome G89.4 Active Problem Other abnormalities of gait and R26.89 Active mobility Problem Low back pain M54.5 Active Problem Varicose veins of bilateral lower I83.893 Active extremities with other complications Problem Spina bifida occulta Q76.0 Active Problem Benign essential HTN I10 Active Problem Decreased testosterone level E29.1 Active Problem Fatigue R53.83 Active Problem Knee pain M25.569 Active Problem Neuropathy, peripheral G62.9 Active Problem Controlled type 2 diabetes with E11.40 Active neuropathy Problem Hyperglyceridemia E78.1 Active Problem Allergic rhinitis, seasonal J30.2 Active Medications Medication Code Code Instructions Start End Status Dosage System Date Date Lipitor [facility] 87917499849 10 MG Orally Active 1 tablet Once a day Lisinopril ND 27920397182 40 MG Orally Active 1 tablet Once a day Augmentin [facility] 09327851933 875-125 MG Jul 20, Inactive 1 tablet Orally every 12 2019 hrs Lidocaine HCl ND 50661643124 2 % Externally May 18, Active 1 application Three times a 2017 to affected day area as needed Amaryl ND 95440437469 2 MG Orally BID Active take 1 tablet by mouth twice a day before a meal Bactrim DS ND 05896660852 800-160 MG Jun 02May Inactive 1 tablet Orally Every 2017 10, Hours 2017 Lidoderm ND 84639940262 5 % Externally Apr 27November Inactive 1 patch to Once a day 2017, skin remove 2018 after 12 hours - cut to fit Tylenol # 3 NDC 0 Active not defined Viagra ND 55799767435 50 MG Orally Active 1 tablet as Once a day needed Tradjenta ND 20054191410 5 MG Orally September Active 1 tablet Once a day 2017 Clotrimazole ND 70966900316 1 % Externally Jan Active 1 application Twice a day 09, to affected 2019 area Walker ND 25971534399 - daily with May 18, Active as directed movement 2017 Metformin HCl ND 92194005914 1000 MG Orally Active 1 tablet with Twice a day meals Tylenol # 3 NDC 0 300/30mg PO May 17Apr Inactive one to two every 8 hours 2017 24, tabs as needed for 2018 pain CPAP Machine NDC 0 Active not defined Lasix [facility] 79410801222 40 MG Orally Active 1 tablet Once a day Results No Known Results Summary Purpose eClinicalWorks Submission
--- OUTSIDE RECORDS SUMMARY | 2019-01-13 03:46 | XMS REPORT ---
:1970 Author Organization eClinicalWorks Care Team Providers Name Role Phone Chintan Storey Provider Role Unavailable Allergies No Known Allergies Problems Problem Type Condition Code Onset Dates Condition Status Problem Cellulitis of toe of right foot [...] Start End Status Dosage System Date Date Glimepiride [facility] 99178465312 4 MG Orally Once January 10, Active 1 tablet a day 2019 with breakfast or the first main meal of the day Results No Known Results Summary Purpose [employer] Submission
--- NOTE | 2019-01-13 04:47 | ER ---
Nurse's Notes [facility] Name: Al Richardson Age: 48 yrs Sex: Male : 1970 Arrival Date: 01/13/2019 Time: 03:45 Bed 17 Private MD: Chintan Storey Diagnosis: Contusion right foot Presentation: 01/13 03:52 Presenting complaint: Patient states: Hit 5th toe on right foot on nightstand. Pt tl2 reports pain is keeping him awake. Transition of care: patient was not received from another setting of care. Onset of symptoms was January 12, 2019. Risk Assessment: Do you want to hurt yourself or someone else? Patient reports no desire to harm self or others. Initial Sepsis Screen: Does the patient meet any 2 criteria? No. Patient's initial sepsis screen is negative. Does the patient have a suspected source of infection? No. Patient's initial sepsis screen is negative. Care prior to arrival: None. 03:52 Method Of Arrival: Ambulatory tl2 03:52 Acuity: NANCY 4 tl2 Triage Assessment: 03:54 General: Appears in no apparent distress. uncomfortable, Behavior is calm, cooperative, tl2 appropriate for age. Pain: Complains of pain in right fifth toe and Right fifth toenail. Neuro: Level of Consciousness is awake, alert, obeys commands, Oriented to person, place, time, situation. Cardiovascular: Denies chest pain. Respiratory: Airway is patent Respiratory effort is even, unlabored, Respiratory pattern is regular, symmetrical. Derm: Skin is pink, warm \T\ dry. Musculoskeletal: Reports pain in right fifth toe and Right fifth toenail. Historical: - Allergies: 03:54 Pork/Porcine Containing Products; tl2 - Home Meds: 03:54 glimepiride 2 mg Oral tab 1 tab once daily [Active]; metformin 1,000 mg Oral tab 1 tab tl2 2 times per day [Active]; Viagra Oral [Active]; - PMHx: 03:54 Cellulitis; Diabetes - NIDDM; lymphedema; PERIPHERAL NEUROPATHY; Hypertension; tl2 - PSHx: 03:54 Tonsillectomy; tl2 - Immunization history:: Adult Immunizations up to date. - Social history:: Smoking status: Patient/guardian denies using tobacco. - Ebola Screening: : No symptoms or risks identified at this time. Screenin:57 Abuse screen: Denies threats or abuse. Nutritional screening: No deficits noted. tl2 Tuberculosis screening: No symptoms or risk factors identified. Fall Risk None identified. Assessment: 03:54 General: see triage assessment. tl2 04:55 Reassessment: Patient appears in no apparent distress at this time. Patient and/or tl2 family updated on plan of care and expected duration. Pain level reassessed. Patient is alert, oriented x 3, equal unlabored respirations, skin warm/dry/pink. pt verbalized understanding of discharge instructions, need for follow up. Vital Signs: 03:54 BP 172 / 92; Pulse 76; Resp 18; Temp 97.6; Pulse Ox 96% on R/A; Weight 204.12 kg; tl2 Height 5 ft. 11 in. (180.34 cm); Pain 5/10; 03:54 Body Mass Index 62.76 (204.12 kg, 180.34 cm) tl2 ED Course: 03:45 Patient arrived in ED. am2 03:45 Chintan Storey DO is Private Physician. am2 03:51 Arm band placed on right wrist. Patient placed in an exam room, on a stretcher. aa1 03:51 Patient has correct armband on for positive identification. Bed in low position. Call aa1 light in reach. Pulse ox on. NIBP on. 03:52 Usama Sheppard MD is Attending Physician. pkl 03:52 Mirian Kendall, CARLITO is Primary Nurse. tl2 03:53 Triage completed. tl2 04:28 X-ray completed. Portable x-ray completed in exam room. Patient tolerated procedure kw well. 04:30 Foot Right 3 View XRAY In Process Unspecified. EDMS 04:46 Chintan Storey DO is Referral Physician. pkl 04:55 No provider procedures requiring assistance completed. Patient did not have IV access tl2 during this emergency room visit. Administered Medications: No medications were administered Outcome: 04:46 Discharge ordered by . pkl 04:55 Discharged to home ambulatory, with family. tl2 04:55 Condition: stable 04:55 Discharge instructions given to patient, family, Instructed on discharge instructions, follow up and referral plans. 04:56 Patient left the ED. tl2 Signatures: Dispatcher [employer] EDHI Ruthie Atkinson, RN RN aa1 Usama Sheppard MD MD pkl Whitley, Kimberlee kw Knox, Taylor, RN RN tl2 Milana Mayers am2 Corrections: (The following items were deleted from the chart) 03:57 03:52 Onset of symptoms was January 13, 2019 at 03:00 tl2 tl2
--- NOTE | 2019-01-13 04:47 | EDPHYS ---
Physician Documentation [facility] Name: Al Richardson Age: 48 yrs Sex: Male : 1970 Arrival Date: 01/13/2019 Time: 03:45 Bed 17 Private MD: Chintan Storey ED Physician Usama Sheppard HPI: 01/13 03:58 This 48 yrs old Male presents to ER via Ambulatory with complaints of Foot pkl Pain, Leg Pain. 03:58 The patient presents with a contusion, an injury. The complaints affect the right fifth pkl toe. Context: resulted from hit right 5 th toe against night stand. Onset: The symptoms/episode began/occurred last night. Historical: - Allergies: 03:54 Pork/Porcine Containing Products; tl2 - Home Meds: 03:54 glimepiride 2 mg Oral tab 1 tab once daily [Active]; metformin 1,000 mg Oral tab 1 tab tl2 2 times per day [Active]; Viagra Oral [Active]; - PMHx: 03:54 Cellulitis; Diabetes - NIDDM; lymphedema; PERIPHERAL NEUROPATHY; Hypertension; tl2 - PSHx: 03:54 Tonsillectomy; tl2 - Immunization history:: Adult Immunizations up to date. - Social history:: Smoking status: Patient/guardian denies using tobacco. - Ebola Screening: : No symptoms or risks identified at this time. ROS: 03:58 MS/extremity: Positive for contusion, pain, tenderness, of the right fifth toe. pkl 03:58 Eyes: Negative for injury, pain, redness, and discharge, ENT: Negative for injury, pain, and discharge, Neck: Negative for injury, pain, and swelling, Cardiovascular: Negative for chest pain, palpitations, and edema, Respiratory: Negative for shortness of breath, cough, wheezing, and pleuritic chest pain, Abdomen/GI: Negative for abdominal pain, nausea, vomiting, diarrhea, and constipation, Back: Negative for injury and pain, : Negative for injury, bleeding, discharge, and swelling, Skin: Negative for injury, rash, and discoloration, Neuro: Negative for headache, weakness, numbness, tingling, and seizure. Exam: 03:58 Head/Face: Normocephalic, atraumatic. Eyes: Pupils equal round and reactive to light, pkl extra-ocular motions intact. Lids and lashes normal. Conjunctiva and sclera are non-icteric and not injected. Cornea within normal limits. Periorbital areas with no swelling, redness, or edema. ENT: Nares patent. No nasal discharge, no septal abnormalities noted. Tympanic membranes are normal and external auditory canals are clear. Oropharynx with no redness, swelling, or masses, exudates, or evidence of obstruction, uvula midline. Mucous membranes moist. Neck: Trachea midline, no thyromegaly or masses palpated, and no cervical lymphadenopathy. Supple, full range of motion without nuchal rigidity, or vertebral point tenderness. No Meningismus. Chest/axilla: Normal chest wall appearance and motion. Nontender with no deformity. No lesions are appreciated. Cardiovascular: Regular rate and rhythm with a normal S1 and S2. No gallops, murmurs, or rubs. Normal PMI, no JVD. No pulse deficits. Respiratory: Lungs have equal breath sounds bilaterally, clear to auscultation and percussion. No rales, rhonchi or wheezes noted. No increased work of breathing, no retractions or nasal flaring. Abdomen/GI: Soft, non-tender, with normal bowel sounds. No distension or tympany. No guarding or rebound. No evidence of tenderness throughout. Back: No spinal tenderness. No costovertebral tenderness. Full range of motion. Skin: Warm, dry with normal turgor. Normal color with no rashes, no lesions, and no evidence of cellulitis. Neuro: Awake and alert, GCS 15, oriented to person, place, time, and situation. Cranial nerves II-XII grossly intact. Motor strength 5/5 in all extremities. Sensory grossly intact. Cerebellar exam normal. Normal gait. 03:58 Musculoskeletal/extremity: Extremities: grossly normal except: noted in the right fifth toe: pain, swelling, tenderness. Vital Signs: 03:54 BP 172 / 92; Pulse 76; Resp 18; Temp 97.6; Pulse Ox 96% on R/A; Weight 204.12 kg; tl2 Height 5 ft. 11 in. (180.34 cm); Pain 5/10; 03:54 Body Mass Index 62.76 (204.12 kg, 180.34 cm) tl2 MDM: 03:52 Patient medically screened. pkl 04:42 Data reviewed: vital signs, nurses notes, radiologic studies, plain films. ED course: pkl Discussed X. rays finding. No definite fracture noted. Possible hair-line fracture may be visualized with repeat X' rays in 10 days. Patient understood instruction.. 01/13 03:57 Order name: Foot Right 3 View XRAY pkl Administered Medications: No medications were administered Disposition: 01/13/19 04:46 Discharged to Home. Impression: Contusion right foot. - Condition is Stable. - Medication Reconciliation Form, Thank You Letter, Antibiotic Education, Prescription Opioid Use form. - Follow up: Chintan Storey DO; When: 7 - 10 days; Reason: Re-evaluation by your physician. - Problem is new. - Symptoms are unchanged. Signatures: Dispatcher [employer] EDMS Usama Sheppard MD MD pkl Mirian Kendall RN RN tl2 Corrections: (The following items were deleted from the chart) 04:56 04:46 01/13/2019 04:46 Discharged to Home. Impression: Contusion right foot. Condition tl2 is Stable. Forms are Medication Reconciliation Form, Thank You Letter, Antibiotic Education, Prescription Opioid Use. Follow up: Chintan Storey; When: 7 - 10 days; Reason: Re-evaluation by your physician. Problem is new. Symptoms are unchanged. pkl
[2019-01-13 05:14] VITALS: BP 172/92; TEMP 97.6; O2SAT 96
--- NOTE | 2019-01-13 08:16 | RAD REPORT ---
EXAM DESCRIPTION: RAD - Foot Right 3 View - 01/13/2019 4:28 am CLINICAL HISTORY: PAIN COMPARISON: Foot Right 3 View dated 04/25/2018; Foot Right 2 View dated 03/15/2018 FINDINGS: Lucency is seen in the proximal aspect of the proximal phalanx the fifth toe compatible wi th a nondisplaced fracture. Mild to moderate soft tissue swelling is present. Small plantar and moder ate posterior calcaneal spur.
== END 2019-01-13 04:56 | disposition home or self-care (01) ==
LOC: ER 03:42
DX: S90.31XA Contusion of right foot, initial encounter (principal); W22.8XXA Striking against or struck by other objects, initial encounter; E11.9 Type 2 diabetes mellitus without complications; I10 Essential (primary) hypertension; Z79.84 Long term (current) use of oral hypoglycemic drugs
CPT/HCPCS: 82962; 99283